=== PATIENT | female | born 1955 | race Two or more races ===

== ENCOUNTER 2019-08-08 20:00 | Emergency (ER) | payer OTHER ==
[~2019-08-08] VITALS: Ht 157.5 cm; Wt 120.2 kg
--- NOTE | 2019-08-08 20:05 | NUR ---
Pt BIBRA c/o generalized body pain, weakness and decreased appetite. Pt has hx of R breast cancer. Pt AXO4. Respirations even and unlabored. 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 Pending eval from [facility].
--- NOTE | 2019-08-08 20:20 | NUR ---
XRAY AT BEDSIDE.
--- NOTE | 2019-08-08 20:32 | NUR ---
EKG at bedside.
[2019-08-08 20:36] LABS: BASOPHILS % (AUTO) 0.5 % (0.0-2.0); EOSINOPHILS % (AUTO) 0.2 % (0.0-6.0); HEMATOCRIT 23 % (33-45); HEMOGLOBIN 7.5 g/dL (11.5-14.8); LYMPHOCYTES # (AUTO) 1.9 /CMM (0.8-4.8); LYMPHOCYTES % (AUTO) 36.3 % (20.0-44.0); MEAN CORPUSCULAR HGB CONC 32 g/dl (31.0-36.0); MEAN CORPUSCULAR VOLUME 91 fL (82-100); MONOCYTES # (AUTO) 0.6 /CMM (0.1-1.30); MONOCYTES % (AUTO) 11.5 % (2.0-12.0); NEUTROPHILS # (AUTO) 2.6 /CMM (1.8-8.9); NEUTROPHILS % (AUTO) 51.5 % (43.0-81.0); PLATELET COUNT (AUTO) 144 /CMM (150-450); RED BLOOD CELL COUNT(AUTO) 2.55 MIL/uL (4.0-5.2); WHITE BLOOD COUNT (AUTO) 5.1 K/uL (4.3-11.0)
[2019-08-08 20:49] LABS: ALBUMIN 2.3 g/dL (3.4-5.0); BILIRUBIN,DIRECT 0.3 mg/dL (0.0-0.2); BILIRUBIN,TOTAL 0.5 mg/dL (0.2-1.0); CALCIUM, SERUM 8.7 mg/dL (8.5-10.1); CREATININE 0.8 mg/dL (0.6-1.3); POTASSIUM 3.9 mmol/L (3.5-5.1)
[2019-08-08 21:54] LABS: APPEARANCE,URINE SL CLOUDY (CLEAR); BILIRUBIN,URINE 1+ (NEGATIVE); BLOOD, URINE NEGATIVE Ery/uL (NEGATIVE); COLOR,URINE DARK YELLO (YELLOW); KETONES,URINE NEGATIVE (NEGATIVE); LEUKOCYTE ESTERASE ,URINE 1+ (NEGATIVE); NITRITE, URINE NEGATIVE (NEGATIVE); PH,URINE 5.5 (5.0-8.0); PROTEIN,URINE TRACE mg/dl (NEGATIVE); UGLUCOSE NEGATIVE (NEGATIVE); UROBILINOGEN,URINE >=8.0 EU/dL (0.2)
[2019-08-08 22:46] VITALS: BP 110/66
--- NOTE | 2019-08-08 22:46 | NUR ---
Patient discharged to home in stable condition. Written and verbal after care instructions given. Patient verbalizes understanding of instruction. IV removed. Catheter intact and site benign. Pressure and 4x4 applied to site. No bleeding noted.
[2019-08-08 22:48] LABS: BACTERIA,URINE Few /HPF (None Seen); WBC,URINE 81-100 /HPF (0-3)
[2019-08-08 22:49] LABS: SQUAMOUS EPITHELIAL CELL,UR Few /HPF (None Seen)
== END 2019-08-08 22:47 | disposition home or self-care (01) ==
LOC: ER 20:03
DX: R53.1 Weakness (principal); D61.818 Other pancytopenia; C50.911 Malignant neoplasm of unspecified site of right female breast
CPT/HCPCS: 36415; 71045-TC; 80048-TC; 80076-TC; 81000-TC; 85025-TC; 87086-TC